=== PATIENT | male | born 1995 | race Caucasian/White ===

== ENCOUNTER 2017-01-02 21:38 | Emergency (ER) | payer BC ==
[2017-01-02 23:17] VITALS: BP 128/79
== END 2017-01-03 00:30 | disposition home or self-care (01) ==
LOC: ED 21:38
DX: J40 Bronchitis, not specified as acute or chronic (principal); R51 Headache
CPT/HCPCS: J7613; J7644

== ENCOUNTER 2017-02-21 00:37 | Emergency (ER) | payer BC ==
[2017-02-21 02:05] VITALS: BP 124/60
== END 2017-02-21 02:05 | disposition home or self-care (01) ==
LOC: ED 00:37
DX: S63.695A Other sprain of left ring finger, initial encounter (principal); W21.02XA Struck by soccer ball, initial encounter; Y93.66 Activity, soccer; Y99.8 Other external cause status; Y92.89 Other specified places as the place of occurrence of the external cause
CPT/HCPCS: A4570

== ENCOUNTER 2020-04-24 13:27 | Emergency (ER) | payer SELFPAY ==
[~2020-04-24] VITALS: Ht 170.2 cm; Wt 93.0 kg
[2020-04-24 13:35] VITALS: BP 120/82; Ht 170.2 cm; Wt 93.0 kg
== END 2020-04-24 14:25 | disposition home or self-care (01) ==
LOC: ED 13:27
DX: M25.531 Pain in right wrist (principal)
CPT/HCPCS: Q0092